=== PATIENT | male | born 1965 | race Caucasian/White ===

== ENCOUNTER 2019-10-08 16:14 | Emergency (ER) | payer MEDICAID, SELFPAY | END 2019-10-08 21:04 | disposition admitted as inpatient to this hospital (09) | LOC: ER 11-29 09:37 | PROVIDERS: Emergency Provider Family Medicine | DX: Z76.89 Persons encountering health services in other specified circumstances (principal) ==

== ENCOUNTER 2019-10-08 16:14 | Observation (INO) | payer MEDICAID, SELFPAY ==
[2019-10-08] VITALS (7 sets, daily range): BP systolic 112–152; BP diastolic 80–97; PULSE 72–112; RESP 18–27; TEMP 36.9–37.2; O2SAT 93–97; BMI 47.2
--- NOTE | 2019-10-08 16:30 | XR_ITS ---
WS: [id number] Portable AP upright chest, 10/08/2019 Clinical Data: cp Comparison: Portable chest, 05/02/2017. FINDINGS: No nodules, masses or effusions are seen. The heart is normal. No pneumonia or pneumothorax is noted. The aortic arch and descending aorta are minimally tortuous. XR/XR chest 1V portable [id number] IMPRESSION: Atherosclerosis.
--- NOTE | 2019-10-08 16:42 | PC.NURSE ---
EKG performed in triage. Patient seated in waiting room at this time. Will continue to monitor.
[2019-10-08 17:33] LABS: Alanine Aminotransferase 19 U/L (0-41); Albumin Level 4.2 g/dL (3.5-5.2); Alkaline Phosphatase 126 IU/L (40-130); Aspartate Amino Transferase 17 U/L (0-40); Basophils # 0.1 10^3/uL (0.0-0.1); Basophils % 0.5 %; Blood Urea Nitrogen 11 mg/dL (6-20); Calcium 9.6 mg/dL (8.5-10.5); Carbon Dioxide 29 mmol/L (22-29); Chloride 98 mmol/L (98-107); Eosinophils # 0.2 10^3/uL (0.0-0.8); Eosinophils % 1.6 %; Globulin 3.3 g/dL (1.3-4.6); Glomerular Filtration Rate 77.6 mL/min (90-130); Glucose 102 mg/dL (74-109); Hematocrit 45.8 % (42.0-52.0); Hemoglobin 14.6 g/dL (11.7-16.6); Lymphocytes # 3.3 10^3/uL (0.8-4.8); Lymphocytes % 32.9 %; Mean Corpuscular HGB Conc 31.9 g/dL (30.0-36.0); Mean Corpuscular Volume 94.2 fL (80-94); Mean Platelet Volume 10.4 fL (7.4-10.4); Monocytes # 0.5 10^3/uL (0.2-0.9); Monocytes % 4.9 %; NT Pro B Type Natriuretic Pept 877 pg/mL (0-125); Neutrophils # 5.9 10^3/uL (1.8-7.7); Neutrophils % 59.7 %; Nucleated Red Blood Cells % 0 %; Platelet Count 293 10^3/cmm (130-400); Red Blood Count 4.86 10^6/uL (4.1-5.3); Red Cell Distribution Width 12.7 % (12.1-15.1); Sodium 137 mmol/L (136-145); Total Bilirubin 0.5 mg/dL (0.15-1.2); Total Protein 7.5 g/dL (6.6-8.7); Troponin(5th) Baseline 138 ng/mL (0-15); White Blood Count 9.9 10^3/uL (4.0-10.0)
--- NOTE | 2019-10-08 18:03 | ED_ITS ---
Entered by Kaveh Shah, acting as scribe for Polo Colón DO Oct 08, 2019 16:14 HPI - Chest Pain General: Chief Complaint: Chest Pain Stated Complaint: SOB, CP Time Seen by Provider: 10/08/19 18:03 History of Present Illness: HPI narrative: 54 yo male presents with chest pain and shortness of breath. Pt states that his chest pain and shortness of breath started today. Pt states that he had a stress test done 15 years ago. Pt states that he can't walk very far without becoming short of breath. Pt states that he sleeps with a CPAP machine. Pt states that he has a heart murmur. MD complaint: chest pain Associated symptoms: Reports dyspnea; Deny abdominal pain, fever(s), nausea, palpitations, syncope or vomiting Review of Systems Const: Denies: fever, chills, body aches, fatigue, malaise or night sweats Eyes: Denies: change in vision or blurry vision ENMT: Denies: throat pain, oral sores/lesions, dental pain, nasal discharge or nasal congestion Card: Reports: chest pain and shortness of breath on exertion; Denies: palpitations, irregular heart rhythm, edema, syncope, shortness of breath when lying down or leg pain with exertion Resp: Reports: shortness of breath, non-productive cough and wheezing; Denies: productive cough GI: Denies: abdominal pain, nausea, vomiting, vomiting blood, coffee grounds in vomit, difficulty swallowing, heartburn/indigestion, diarrhea, constipation, cramping, blood in stool or black tarry stool : Denies: flank pain, difficulty urinating, painful urination, urinary frequency, urinary urgency, urinary incontinence or blood in urine Musc: Denies: neck pain, back pain, extremity pain, extremity swelling, joint pain or joint swelling Skin/Breast: Denies: rash, itching or redness Neuro: Denies: headache, numbness in extremities, weakness in extremities, changes in sensation, lack of coordination, difficulty walking, frequent falls, dizziness, vertigo or confusion Psych: Denies: anxiety, depression, loss of interest, visual hallucinations, auditory hallucinations, suicidal ideation or homicidal ideation Endo: Denies: excessive urination, excessive thirst, tired all the time or cold intolerance Derek/Lymph: Denies: easy bruising, easy bleeding, petechiae, enlarged lymph nodes or tender lymph nodes PFSH ED PFSH: Statuses (acute, chronic, etc) shown below reflect problem list status as previously entered and may not be historically accurate Medical History Back pain (Acute) GI bleeding (Acute) Gout (Acute) Heart murmur (Acute) Hyperlipidemia (Acute) Hypertension (Acute) Peptic ulcer disease (Acute) Pneumonia (Acute) Family History Daughter No problems noted. Brother CAD (coronary artery disease) Sister CAD (coronary artery disease) Social History Smoking and tobacco status: former smoker Alcohol intake: never Physical Exam Const: COMMON NORMALS: average body habitus, oriented x3 and alert GENERAL APPEARANCE: cooperative, comfortable, well kempt and well developed NUTRITIONAL APPEARANCE: obese ORIENTATION/CONSCIOUSNESS: Yes awake, Yes oriented to person and Yes oriented to place HENMT: COMMON NORMALS: normocephalic, head/scalp atraumatic, EAC's normal, TM's normal bilaterally, external nose normal, moist oral mucous membranes and oropharynx normal HEAD & SCALP: normocephalic and atraumatic NOSE: external nose normal EXTERNAL AUDITORY CANAL: EAC's normal TYMPANIC MEMBRANE: TM's normal bilaterally MOUTH: oral and palatal mucosa normal, lip normal and tongue normal THROAT: posterior oropharynx normal and tonsils normal Eye: COMMON NORMALS: PERRL, EOMs intact bilaterally, conjunctivae normal and no scleral icterus CONJUNCTIVA: Yes conjunctivae normal PUPIL: Yes PERRL Neck/C-Spine: COMMON NORMALS: full ROM, no lymphadenopathy, supple, no me ningeal signs and thyroid normal THYROID: thyroid normal and asymmetrical Lymph: LYMPHATIC: no lymphadenopathy noted Resp: COMMON NORMALS: normal respiratory effort, no retractions, no use of accessory muscles and clear to auscultation bilaterally AUSCULTATION: clear to auscultation bilaterally and wheezes expiratory wheezes Cardio: COMMON NORMALS: regular rate and regular rhythm RATE: regular rate RHYTHM: regular rhythm HEART SOUNDS: no murmurs GI: COMMON NORMALS: normal to inspection, nondistended, normoactive bowel sounds, soft to palpation and no hepatosplenomegaly PALPATION: Yes soft and Yes no hepatosplenomegaly : COMMON NORMALS: Yes no CVA tenderness BLADDER/KIDNEY EXAM: Yes no CVA tenderness Back/Pelvis: COMMON NORMALS: no CVA tenderness LUMBAR SPINE/LOWER BACK: Yes normal to inspection Extremity: COMMON NORMALS: no clubbing, cyanosis or edema, no calf tenderness and no pedal edema Neuro: COMMON NORMALS: oriented x3 SENSORIUM/ORIENTATION: Yes alert, Yes oriented to person and Yes oriented to place MENINGEAL SIGNS: Yes no meningeal signs Psych: APPEARANCE: Yes well kempt Skin: COMMON NORMALS: no rashes or lesions noted and skin turgor normal GENERAL SKIN EXAM: no rashes or lesions noted and turgor normal Course ED course: Patient is a heart score of 6 with a baseline troponin greater than 100. He has no significant EKG changes. We will go ahead and put him in as an end STEMI for further evaluation discussed with Dr. Esteevs. Vital Signs: Vital signs: Vital Signs Temperature 99.6 F 10/09/19 17:50 Pulse Rate 88 10/09/19 17:50 Respiratory Rate 18 10/09/19 17:50 Blood Pressure 102/66 10/09/19 17:50 Pulse Oximetry 91 10/09/19 17:50 MDM - Chest Pain Lab Data: Labs: Lab Results 10/08/19 10/08/19 10/08/19 Range/Units 17:00 17:00 17:00 WBC 9.9 (4.0-10.0) 10^3/ uL RBC 4.86 (4.1-5.3) 10^6/u L Hgb 14.6 (11.7-16.6) g/dL Hct 45.8 (42.0-52.0) % MCV 94.2 H (80-94) fL MCH 30.0 (28.0-34.0) pg MCHC 31.9 (30.0-36.0) g/dL RDW 12.7 (12.1-15.1) % Plt Count 293 (130-400) 10^3/c mm MPV 10.4 (7.4-10.4) fL Neut % (Auto) 59.7 % Lymph % (Auto) 32.9 % Merrick % (Auto) 4.9 % Eos % (Auto) 1.6 % Baso % (Auto) 0.5 % Neut # (Auto) 5.9 (1.8-7.7) 10^3/u L Lymph # (Auto) 3.3 (0.8-4.8) 10^3/u L Merrick # (Auto) 0.5 (0.2-0.9) 10^3/u L Eos # (Auto) 0.2 (0.0-0.8) 10^3/u L Baso # (Auto) 0.1 (0.0-0.1) 10^3/u L Nucleated RBC % (a uto) 0 % Nucleated RBCs # 0.0 /100WBC Sodium 137 (136-145) mmol/L Potassium 4.0 (3.5-5.1) mmol/L Chloride 98 (98-107) mmol/L Carbon Dioxide 29 (22-29) mmol/L Anion Gap 14.0 (5-19) BUN 11 (6-20) mg/dL Creatinine 1.0 (0.7-1.2) mg/dL GFR Calculation 77.6 L (90-130) mL/min Glucose 102 (74-109) mg/dL Calcium 9.6 (8.5-10.5) mg/dL Total Bilirubin 0.5 (0.15-1.2) mg/dL AST 17 (0-40) U/L ALT 19 (0-41) U/L Alkaline Phosphata se 126 (40-130) IU/L Troponin T Baselin e 138 H* (0-15) ng/mL NT-Pro-B Natriuret Pep 877 H (0-125) pg/mL Total Protein 7.5 (6.6-8.7) g/dL Albumin 4.2 (3.5-5.2) g/dL Globulin 3.3 (1.3-4.6) g/dL Discharge Plan Discharge Patient Disposition: Admitted As Inpatient Admit Provider: Alan Esteves Clinical Impression: Atypical chest pain, Hypertension, GERD (gastroesophageal reflux disease) Condition: Stable Discharge Orders: Discharge Order (Routine); Ordered 10/09/19 Ordered By: Alan Esteves Discharge Diet: Advance as tolerated Discharge Activity: Resume usual activity Interventions: ED Discharge Assessment Last Done: 10/08/19 21:03 Discharge Date/Time: 10/08/19 21:04 Coding Level of Care Code ED Starch Cooker for Chg Fwd Exam Problem Focused The documentation recorded by the Pablo sifuentes Kialy, accurately reflects the service I personally performed and the decisions made by Eldon rowley Curtis L, DO Oct 08, 2019 16:14
--- NOTE | 2019-10-08 18:30 | ECG_ITS ---
Measurements Intervals [place] Rate: 102 P: 33 MD: 147 QRS: -8 QRSD: 94 T: 121 QT: 338 QTc: 441 SINUS TACHYCARDIA LEFT VENTRICULAR HYPERTROPHY AND ST-T CHANGE [VOLTAGE CRITERIA PLUS ST/T ABNORMALITY] POSSIBLE SEPTAL MYOCARDIAL INFARCTION [30 ms Q WAVE IN V1/V2], OF INDETERMINATE AGE Nonspecific ST changes WARNING: DATA QUALITY MAY AFFECT INTERPRETATION Compared to ECG 05/02/2017 19:34:27 ST (T wave) deviation now present Myocardial infarct finding now present Sinus rhythm no longer present Sinus arrhythmia no longer present T-wave abnormality no longer present Electronically Signed On 10-08-2019 21:10:56 FERMENTATION ENGINEER by Deb Stern M.D. [id number]
[2019-10-08] MEDS: nitroglycerin 1 gm/inch oint Pkt 1 INCH TOPICAL (19:15)
[2019-10-08] MEDS: enoxaparin 100 mg/mL Syringe SUBCUT (19:26)
[2019-10-08] MEDS: enoxaparin 40 mg/0.4 mL Syringe SUBCUT (19:26)
--- NOTE | 2019-10-08 19:56 | PC.NURSE ---
report called to aide on c [address]
--- NOTE | 2019-10-08 21:02 | P.HP_ITS ---
Providers/Chief Complaint Admitting Physician: Alan Esteves MD Chief Complaint: SOB, CP History of Present Illness Alcides Pretty is a 54 year old male with a past medical history of moderately persistent asthma, peptic ulcer disease, GERD, hypertension, hyperlipidemia, chronic back pain who presents to the emergency room due to complaints of shortness of breath and chest pain. Patient states that for the past few months, he has had more shortness of breath, particularly shortness of breath with exertion, stated that yesterday he was out chopping wood, and had an episode of shortness of breath with wheezing, which he attributed to an asthma exacerbation, took albuterol inhaler, his symptoms improved within 5 or so minut es. Patient states that this morning, he woke up with shortness of breath, no wheezing, took an Advair inhalation, symptoms improved in about 5 minutes. Patient states that he went to [facility] this afternoon, stated that when he walked to the back of [facility], he felt more short of breath, more short of breath than usual, and had an episode of substernal chest pain, sharp, stabbing- like, nonradiating, no diaphoresis, no lightheadedness, no dizziness, no nausea, no vomiting, lasting 5 minutes, he stated he eased up, but had some degree of persistent chest pain that lasted roughly 10 minutes when he walked back to his car, sat down, and pain went away with rest. Patient then drove home with his , stated that when he got out of the car with her groceries, he felt short of breath with a few feet, this is extremely unusual for him, no associated wheezing, no cough thus he presented to the emergency room for further evaluation. Patient states that 15 years ago he had episodes of chest pain, had a stress test which was unremarkable, had an EGD which showed gastric ulcers, was put on Protonix 40 twice daily, recently his physician has cut him down to 40 once daily, states that the 40 once daily Protonix helps his acid reflux symptoms, but he has persistent symptoms depending on what he eats. He is not sure if this episode of chest pain was related to his acid reflux. Nor is he sure is if it was related to an asthma exacerbation. But does state that he has intermittent chest pain, occurs every 1 to 2 months, has not sought medical intervention as he thought it was related to his acid reflux. He does have a family history of CAD in his brother and sister. No history of heart failure. No history of CABG. No history of PCI. His last severe asthma exacerbation was many years ago. Patient states that he uses albuterol on a daily basis for the past month, uses Advair twice daily, no recent fevers, cough, infections. Patient does state that he is feeling more anxious for the past few days, as his landlord is evicting them from their rental. Denies a history of diabetes, but does state that his his left eye has been blurry intermittently for the past few days. Review of Systems Const: Denies: fever or chills Eyes: Denies: change in vision or blurry vision ENMT: Denies: nasal congestion Card: Reports: chest pain; Denies: palpitations, irregular heart rhythm, lightheadedness, syncope or pre- syncope Resp: Reports: shortness of breath; Denies: productive cough, non-productive cough or wheezing GI: Denies: abdominal pain, nausea, vomiting, vomiting blood, diarrhea, constipation, blood in stool or black tarry stool : Denies: flank pain, difficulty urinating, painful urination or urinary frequency Musc: Denies: neck pain or back pain Skin/Breast: Denies: rash Neuro: Denies: headache, dizziness or vertigo Psych: Reports: anxiety; Denies: depression Endo: Denies: excessive urination or excessive thirst Medications/Allergies Allergies Allergy/AdvReac Type Severity Reaction Status Date / Time aspirin Allergy Unknown Verified 10/08/19 16:43 gabapentin Allergy ALGY-Hives Verified 10/08/19 16:43 PFSH Acute PFSH: Statuses (acute, chronic, etc) shown below reflect problem list status as previously entered and may not be historically accurate Medical History (Updated 10/08/19 @ 21:09 by Antonio Lay MD) Back pain (Acute) GI bleeding (Acute) Gout (Acute) Heart murmur (Acute) Hyperlipidemia (Acute) Hypertension (Acute) Peptic ulcer disease (Acute) Pneumonia (Acute) Family History (Updated 10/08/19 @ 21:11 by Antonio Lay MD) Daughter No problems noted. Brother CAD (coronary artery disease) Sister CAD (coronary artery disease) Social History (Updated 10/08/19 @ 21:11 by Antonio Lay MD) Smoking and tobacco status: former smoker Alcohol intake: never Substance/Drug Use: never Vitals/I&O/Wt Last Vital Signs Temp 99 F 10/08/19 16:37 Pulse 97 10/08/19 19:28 Resp 21 H 10/08/19 19:28 BP 112/92 10/08/19 19:28 Pulse Ox 96 10/08/19 19:28 Weight last 48 hrs Weight 145.15 kg Physical Exam Const: COMMON NORMALS: no apparent distress and oriented x3 GENERAL APPEARANCE: cooperative and comfortable HENMT: COMMON NORMALS: normocephalic HEAD & SCALP: normocephalic Eye: COMMON NORMALS: PERRL, EOMs intact bilaterally and no papilledema GENERAL EYE: normal appearance of both eyes PUPIL: Yes PERRL DIRECT OPHTHALMOSCOPY: Yes no papilledema Neck/C-Spine: COMMON NORMALS: full ROM, no lymphadenopathy, no JVD and thyroid normal THYROID: thyroid normal Lymph: LYMPHATIC: no lymphadenopathy noted Resp: COMMON NORMALS: normal respiratory effort, no retractions, no use of accessory muscles and clear to auscultation bilaterally AUSCULTATION: clear to auscultation bilaterally Cardio: COMMON NORMALS: no JVD, regular rate, regular rhythm, S1 normal heart sound, S2 normal heart sound, no gallops, no clicks and no murmurs RATE: regular rate RHYTHM: regular rhythm HEART SOUNDS: S1 normal, S2 normal and murmur systolic GI: COMMON NORMALS: normal to inspection, nondistended, normoactive bowel sounds, soft to palpation, non-tender and no hepatosplenomegaly PALPATION: Yes soft and Yes no hepatosplenomegaly Extremity: COMMON NORMALS: normal to inspection, full ROM and no pedal edema Neuro: COMMON NORMALS: oriented x3, CN's II-XII intact bilaterally, moves all extremities and no focal motor deficits Psych: COMMON NORMALS: mental status grossly normal, thought process normal and cooperative THOUGHT PROCESS: normal thought process Data : 10/08/19 17:00 10/08/19 17:00 A&P Assessment and plan (1) Chest pain: -History is not very convincing in terms of cardiac related chest pain -Seems more like related to acid reflux and or asthma -Patient's initial EKG did show new T wave inversions in 1, aVL, chronic LVH -Patient's initial troponin was 138, 2-hour 137, delta 0.5 -Patient had another episode of 5 minutes of chest pain in the ER, resolved with nitro paste -Has history of hypertension, hyperlipidemia, family history of CAD, morbid obesity Plan: -ACS protocol, low-dose aspirin 81 mg GI coated, Protonix, nitro, Coreg -Serial EKGs, troponins -Oxygen therapy -Continue telemetry monitoring -Cardiac diet -N.p.o. midnight, stress test tomorrow morning, patient has back pain, cannot really run on treadmill, order Lexiscan MIBI -Has a systolic murmur, will order cardiac echocardiogram Status: Acute Code(s): R07.9 - Chest pain, unspecified (2) Hypertension: Status: Acute Code(s): I10 - Essential (primary) hypertension (3) Heart murmur: Status: Acute Code(s): R01.1 - Cardiac murmur, unspecified (4) Peptic ulcer disease: -Increase Protonix to 40 twice daily, GI cocktail Status: Acute Code(s): K27.9 - Peptic ulcer, site unspecified, unspecified as acute or chronic, without hemorrhage or perforation (5) Hyperlipidemia: Status: Acute Code(s): E78.5 - Hyperlipidemia, unspecified (6) Asthma exacerbation: -Patient has moderate persistent asthma, poorly controlled -Has had a few exacerbations the last few days -Currently in ER not actively wheezing, not actively short of breath, saturating high 90s on room air -We will start prednisone burst -Albuterol nebulizers -Advair Status: Acute Code(s): J45.901 - Unspecified asthma with (acute) exacerbation (7) GERD (gastroesophageal reflux disease): Status: Acute Code(s): K21.9 - Gastro-esophageal reflux disease without esophagitis Attestations Medical Necessity Statement*: Patient requires hospitalization, outpatient with observation, for chest pain and asthma exacerbation Coding Level of Care Code Acute Water Treatment Plant Supervisor for Chg Fwd Diagnoses Chest pain R07.9 Hypertension I10 Heart murmur R01.1 Peptic ulcer disease K27.9 Hyperlipidemia E78.5 Asthma exacerbation J45.901 GERD (gastroesophageal reflux disease) K21.9
--- NOTE | 2019-10-08 21:37 | USCV_ITS ---
Alcides Pretty Age: 54 Gender: M : 1965 Exam Date: 10/09/2019 06:58 Ordering Phys: Antonio Lay MD Technologist: Leighton Xavier [place] [facility] [place]: CHEST PAIN MURMUR BP: 134 / 74 HR: 76 Rhythm: Sinus Technical Quality: Suboptimal MEASUREMENTS (Male / Female) Normal Values 2D ECHO LV Diastolic Diameter PLAX 5.5 cm 4.2 - 5.9 / 3.9 - 5.3 cm LV Systolic Diameter PLAX 4.0 cm IVS Diastolic Thickness 1.1 cm 0.6 - 1.0 / 0.6 - 0.9 cm IVS Systolic Thickness 1.4 cm LVPW Diastolic Thickness 1.1 cm 0.6 - 1.0 / 0.6 - 0.9 cm LVPW Systolic Thickness 1.5 cm LVOT Diameter 2.1 cm LV Ejection Fraction 2D Teich 52.3 % LV Ejection Fraction MOD 2C 44.9 % LV Ejection Fraction 2C AL 46.6 % LA Diameter 4.3 cm LA Width 4.8 cm LA Height 5.8 cm RA Width 5.0 cm RA Height 5.5 cm M-MODE LV Diastolic Diameter MM 5.8 cm 4.2 - 5.9 / 3.9 - 5.3 cm LV Systolic Diameter MM 4.3 cm LV Ejection Fraction MM Teich 50.3 % IVS Diastolic Thickness MM 1.1 cm 0.6 - 1.0 / 0.6 - 0.9 cm IVS Systolic Thickness MM 1.7 cm LVPW Diastolic Thickness MM 1.3 cm 0.6 - 1.0 / 0.6 - 0.9 cm LVPW Systolic Thickness MM 1.9 cm RV Diastolic Diameter MM 2.1 cm Aortic Annulus Diameter 3.7 cm LA Ao Ratio MM 1.1 DOPPLER AV Peak Velocity 398.0 cm/s LVOT Peak Velocity 59.0 cm/s AV Area Cont Eq vti 0.5 cm squared AV Area Cont Eq pk 0.5 cm squared MV E' Velocity 5.0 cm/s TR Peak Velocity 130.0 cm/s TR Peak Gradient 6.8 mmHg TV Peak E Velocity 109.0 cm/s Right Atrial Pressure 3.0 mmHg Pulmonary Artery Systolic Pressu 9.8 mmHg PV Peak Velocity 87.0 cm/s FINDINGS Left Ventricle The ventricles not well seen. Appears to be normal in size. There appears to be severe hypokinesis to akinesis of the anterior wall and apex though this is poorly seen. This suggests an old myocardial infarction distribution of the left anterior descending coronary artery. A rough estimate of the ejection fraction would be 35 to 40%. Grade 1 diastolic dysfunction. Right Ventricle Normal right ventricular size and systolic function. Normal right ventricular systolic pressure. Right Atrium Mildly increased right atrial size. Left Atrium Mildly increased left atrial size. Mitral Valve Mitral valve not well visualized. No mitral valve stenosis. No mitral valve regurgitation. Aortic Valve Aortic valve not well visualized. Severe aortic valve calcification. Moderate aortic valve stenosis, mean gradient 32.1 mmHg, KVNG 0.54 cm squared. The calculation of the gradient and aortic valve area are somewhat disproportionate. There is at least moderate aortic stenosis. No obvious aortic insufficiency. Tricuspid Valve Structurally normal tricuspid valve. Trace tricuspid valve regurgitation. Pulmonic Valve Pulmonic valve not well visualized. Pericardium Normal pericardium without effusion. Aorta Normal ascending aorta dimension. CONCLUSIONS The ventricles not well seen. Appears to be normal in size. There appears to be severe hypokinesis to akinesis of the anterior wall and apex though this is poorly seen. This suggests an old myocardial infarction distribution of the left anterior descending coronary artery. A rough estimate of the ejection fraction would be 35 to 40%. Grade 1 diastolic dysfunction. Mildly increased right atrial size. Mildly increased left atrial size. Aortic valve not well visualized. Severe aortic valve calcification. Moderate aortic valve stenosis, mean gradient 32.1 mmHg, KVNG 0.54 cm squared. The calculation of the gradient and aortic valve area are somewhat disproportionate. There is at least moderate aortic stenosis. No obvious aortic insufficiency. There are no prior echocardiogram studies to compare. Dr. Michael Riggs MD (Electronically Signed) Final Date: 09 October 2019 10:42 S
[2019-10-08] MEDS: aspirin 81 mg EC Tablet PO (22:02)
[2019-10-08] MEDS: pantoprazole DR 40 mg Tablet PO (22:03)
[2019-10-08] MEDS: atorvastatin 40 mg Tablet PO (22:03)
[2019-10-08] MEDS: HYDROcodone-acetaminophen 10-325 mg Tablet 1 TAB PO (22:04)
--- NOTE | 2019-10-08 22:30 | ECG_ITS ---
Measurements Intervals [place] Rate: 106 P: 45 AR: 148 QRS: 1 QRSD: 93 T: 134 QT: 328 QTc: 437 SINUS TACHYCARDIA LEFT VENTRICULAR HYPERTROPHY AND ST-T CHANGE [VOLTAGE CRITERIA PLUS ST/T ABNORMALITY] Compared to ECG 05/02/2017 19:34:27 ST (T wave) deviation now present Sinus rhythm no longer present Sinus arrhythmia no longer present T-wave abnormality no longer present Electronically Signed On 10-08-2019 21:09:28 PRICING CLERK by Deb Stern M.D. [id number]
[2019-10-08] MEDS: acetaminophen 325 mg Tablet 650 MG PO (23:16)
[2019-10-08 23:28] LABS: Thyroid Stimulating Hormone 1.46 uIU/mL (0.27-4.20)
[2019-10-08 23:51] LABS: Troponin 5 6HR 132.6 ng/L (0-15); Troponin 5 6HR Delta -5.4 ng/L (0-12)
[2019-10-09] VITALS (13 sets, daily range): BP systolic 99–119; BP diastolic 66–85; PULSE 68–100; RESP 18–24; TEMP 36.7–37.6; O2SAT 91–96
[2019-10-09 05:30] LABS: Basophils % 0.4 %; Eosinophils # 0.1 10^3/uL (0.0-0.8); Eosinophils % 1.4 %; Hematocrit 38.8 % (42.0-52.0); Hemoglobin 12.7 g/dL (11.7-16.6); Lymphocytes # 4.1 10^3/uL (0.8-4.8); Lymphocytes % 43.1 %; Mean Corpuscular HGB Conc 32.7 g/dL (30.0-36.0); Mean Corpuscular Hemoglobin 30.2 pg (28.0-34.0); Mean Corpuscular Volume 92.4 fL (80-94); Mean Platelet Volume 10.1 fL (7.4-10.4); Monocytes # 0.5 10^3/uL (0.2-0.9); Monocytes % 4.9 %; Neutrophils # 4.7 10^3/uL (1.8-7.7); Neutrophils % 49.9 %; Nucleated Red Blood Cells % 0 %; Platelet Count 242 10^3/cmm (130-400); Red Cell Distribution Width 12.6 % (12.1-15.1); White Blood Count 9.4 10^3/uL (4.0-10.0)
[2019-10-09 05:48] LABS: Alanine Aminotransferase 15 U/L (0-41); Albumin Level 3.3 g/dL (3.5-5.2); Alkaline Phosphatase 101 IU/L (40-130); Anion Gap 17.5 (5-19); Aspartate Amino Transferase 14 U/L (0-40); Blood Urea Nitrogen 10 mg/dL (6-20); Calcium 9.2 mg/dL (8.5-10.5); Carbon Dioxide 24 mmol/L (22-29); Chloride 99 mmol/L (98-107); Globulin 3.3 g/dL (1.3-4.6); Glomerular Filtration Rate 87.6 mL/min (90-130); Glucose 116 mg/dL (74-109); Potassium 3.5 mmol/L (3.5-5.1); Sodium 137 mmol/L (136-145); Total Bilirubin 0.5 mg/dL (0.15-1.2); Total Protein 6.6 g/dL (6.6-8.7)
--- NOTE | 2019-10-09 06:00 | ECG_ITS ---
Intraprocedure shortess of breath; Lung unchanged pre/post procedure; Symptoms resoled by discharge LEXISCAN STRESS TEST ORDERING PHYSICIAN: Hospitalist CLINICAL INFORMATION: Chest pain INTERPRETATION: 1. The patient was brought to the laboratory where Lexiscan was infused over 20 seconds. The resting blood pressure was 138/74. Maximum blood pressure was 138/74. The resting heart rate was 80 beats per minute. The maximum heart rate is 107 beats per minute. 2. The baseline electrocardiogram reveals sinus rhythm with left ventricular hypertrophy by voltage, unusual R wave progression suggesting lead misplacement and nonspecific ST and T wave changes throughout 3. With Lexiscan infusion, there were no ST segment changes to suggest ischemia. 4. The patient experienced no symptoms or arrhythmias during the examination. CONCLUSION: 1. Unremarkable Lexiscan infusion. 2. Nuclear imaging to follow. Electronically Signed On 10-09-2019 11:07:02 CONFERENCE DIRECTOR by Michael Riggs M.D. [id number]
[2019-10-09 06:04] LABS: Estmated Average Glucose 126
[2019-10-09 06:06] LABS: Magnesium 2.1 mg/dL (1.7-2.3); Phosphorus 4.2 mg/dL (2.5-4.5)
[2019-10-09] MEDS: enoxaparin 100 mg/mL Syringe 150 MG SUBCUT (06:19)
--- NOTE | 2019-10-09 07:23 | PC.NURSE ---
Pt off of floor at this time for scheduled stress test
[2019-10-09] MEDS: regadenoson 0.4 Mg/5 ml Syringe IVP (07:49)
[2019-10-09] MEDS: pantoprazole DR 40 mg Tablet PO (09:18)
[2019-10-09] MEDS: predniSONE 20 mg Tablet 40 MG PO (09:18)
[2019-10-09] MEDS: aspirin 81 mg EC Tablet PO (09:19)
[2019-10-09] MEDS: carvedilol 6.25 mg Tablet PO (09:19)
--- NOTE | 2019-10-09 14:10 | PC.CHAP ---
Pastoral Care Encounter/Spiritual Assessment Type of Contact [] Declined treating and pumping supervisor visit [] Patient/Family/Request visit [] Outpatient visit [] Follow-up visit [] Physician referral [] Code/Alert [x] Routine visit [] Staff referral [] Actively dying [] Patient sleeping [] Family support [] [] Out of room [] Palliative care [] [] Receiving care in room [] Pre-surgical visit [] Trauma [] Long length of stay [] ICU visit [] Other: Relational/Emotional Strength [x] Patient feels connected with others/family/visitors/staff [] Distress [] Loneliness/isolation [] Abandonment Spirituality of Patient [x] Person of Joyce [] Attends Anabaptist of their Joyce [x] Believes in Prayer [] Reads Bible or Alevism materials [] There are Spiritual issues to be addressed Vertical Contour Band Saw Operator Interventions [x] Prayer [x] Active listening [x] Non-anxious presence [x] Spiritual/emotional support [] Crisis/trauma care [] Spiritual counseling [] Bereavement support [] Provided bereavement packet [] Provided Bible/devotional materials [] Provided toy/stuffed animal, coloring book to patient or family member [] Provided Communion [] Anointing/[place] [] Salvation [] Completed spiritual assessment [] Other: Impact on Illness or Injury [] Angry [] Fearful [] Anxious [] Often cries [] Exhaustion [] Unable to work [] Unable to attend hindu [] Unable to walk/stand [] Unable to read [] Unable to drive [] Unable to eat/drink [] Unable to sleep [] Unable to be with family [] Patient intubated [] Other: Summary The treating and pumping supervisor visited with the patient. The patient said he was feeling better. The treating and pumping supervisor prayed for him. Time spent with patient 10 min.
--- NOTE | 2019-10-09 15:42 | P.DS_ITS ---
Discharge Providers Date of Admission: 10/08/19 18:26 Date of Discharge: Date of Discharge: October 09, 2019 Attending Provider at Admission: Alan Esteves MD Attending Provider at Discharge: Alan Esteves MD Diagnoses at Discharge Discharge Diagnosis (1) Chest pain: Status: Acute (2) Hypertension: Status: Acute (3) Heart murmur: Status: Acute (4) Peptic ulcer disease: Status: Acute (5) Hyperlipidemia: Status: Acute (6) Asthma exacerbation: Status: Acute (7) GERD (gastroesophageal reflux disease): Status: Acute Reason for Visit Reason for Visit: Reason For Visit: SOB, CP Hospital Course Discharge Summary: Patient presented with atypical chest pain which was more suggestive of GI in etiology. Patient was placed in observation and underwent sestamibi Lexiscan test showing no findings of acute ischemia. Case discussed with Dr. Riggs and based on findings further coronary artery evaluation is not recommended. I will request outpatient follow-up with Dr. Lynch. Patient was told to avoid any NSAIDs. Meloxicam will be discontinued and omeprazole will be increased to twice daily. Should patient be symptomatic further evaluation with EGD in 2 months should be considered. Physical Exam Const: COMMON NORMALS: no apparent distress and oriented x3 Resp: COMMON NORMALS: normal respiratory effort and clear to auscultation bilaterally AUSCULTATION: clear to auscultation bilaterally Cardio: COMMON NORMALS: regular rate, regular rhythm and S2 normal heart sound RATE: regular rate RHYTHM: regular rhythm HEART SOUNDS: S2 normal OTHER: No lower extremity edema GI: COMMON NORMALS: normal to inspection, nondistended, normoactive bowel sounds, soft to palpation and non-tender PALPATION: Yes soft Neuro: COMMON NORMALS: oriented x3 and no focal motor deficits Discharge Data Data Completed and Pending: Completed Studies During Hospitalization Category Date Time Status Sestamibi Stress Test Request Routi ne Exams 10/09/19 06:00 Completed XR chest 1V anny ble [id number] Stat Exams 10/08/19 16:30 Completed NM krista perf SPECT r/s* [id number] Routin e Nuc Med 10/09/19 21:37 Completed CV echo complete* [id number] Routine Ultrasound 10/08/19 21:37 Completed Pending at discharge Category Date Time Status Sestamibi Stress Test Request Routi ne Exams 10/08/19 21:37 Stop Req Magnesium AM LABS Lab 10/10/19 04:00 Ordered Magnesium AM LABS Lab 10/11/19 04:00 Ordered Phosphorus AM LAB S Lab 10/10/19 04:00 Ordered Phosphorus AM LAB S Lab 10/11/19 04:00 Ordered Labs from last 24 hours 10/09/19 10/09/19 10/09/19 05:12 05:12 05:12 WBC RBC Hgb Hct MCV MCH MCHC RDW Plt Count MPV Neut % (Auto) Lymph % (Auto) [place] % (Auto) Eos % (Auto) Baso % (Auto) Neut # (Auto) Lymph # (Auto) [place] # (Auto) Eos # (Auto) Baso # (Auto) Nucleated RBC % (a uto) Nucleated RBCs # Sodium 137 Potassium 3.5 Chloride 99 Carbon Dioxide 24 Anion Gap 17.5 BUN 10 Creatinine 0.9 GFR Calculation 87.6 L Glucose 116 H Estimat Average Gl ucose 126 Hemoglobin A1c 6.0 Calcium 9.2 Phosphorus 4.2 Magnesium 2.1 Total Bilirubin 0.5 AST 14 ALT 15 Alkaline Phosphata se 101 Troponin I 6 Hour Troponin I Hi Sens Del Troponin T Baselin e Troponin T 120 Min [place] Troponin T NT-Pro-B Natriuret Pep Total Protein 6.6 Albumin 3.3 L Globulin 3.3 TSH 10/09/19 10/08/19 10/08/19 05:12 22:54 22:54 WBC 9.4 RBC 4.20 Hgb 12.7 Hct 38.8 L MCV 92.4 MCH 30.2 MCHC 32.7 RDW 12.6 Plt Count 242 MPV 10.1 Neut % (Auto) 49.9 Lymph % (Auto) 43.1 [place] % (Auto) 4.9 Eos % (Auto) 1.4 Baso % (Auto) 0.4 Neut # (Auto) 4.7 Lymph # (Auto) 4.1 [place] # (Auto) 0.5 Eos # (Auto) 0.1 Baso # (Auto) 0.0 Nucleated RBC % (a uto) 0 Nucleated RBCs # 0.0 Sodium Potassium Chloride Carbon Dioxide Anion Gap BUN Creatinine GFR Calculation Glucose Estimat Average Gl ucose Hemoglobin A1c Calcium Phosphorus Magnesium Total Bilirubin AST ALT Alkaline Phosphata se Troponin I 6 Hour 132.6 H Troponin I Hi Sens Del -5.4 L Troponin T Baselin e Troponin T 120 Min [place] Troponin T NT-Pro-B Natriuret Pep Total Protein Albumin Globulin TSH 1.46 10/08/19 10/08/19 10/08/19 19:12 17:00 17:00 WBC RBC Hgb Hct MCV MCH MCHC RDW Plt Count MPV Neut % (Auto) Lymph % (Auto) [place] % (Auto) Eos % (Auto) Baso % (Auto) Neut # (Auto) Lymph # (Auto) [place] # (Auto) Eos # (Auto) Baso # (Auto) Nucleated RBC % (a uto) Nucleated RBCs # Sodium 137 Potassium 4.0 Chloride 98 Carbon Dioxide 29 Anion Gap 14.0 BUN 11 Creatinine 1.0 GFR Calculation 77.6 L Glucose 102 Estimat Average Gl ucose Hemoglobin A1c Calcium 9.6 Phosphorus Magnesium Total Bilirubin 0.5 AST 17 ALT 19 Alkaline Phosphata se 126 Troponin I 6 Hour Troponin I Hi Sens Del Troponin T Baselin e 138 H* Troponin T 120 Min [place] 137.50 H Delta Troponin T -0.50 L NT-Pro-B Natriuret Pep 877 H Total Protein 7.5 Albumin 4.2 Globulin 3.3 TSH 10/08/19 17:00 WBC 9.9 RBC 4.86 Hgb 14.6 Hct 45.8 MCV 94.2 H MCH 30.0 MCHC 31.9 RDW 12.7 Plt Count 293 MPV 10.4 Neut % (Auto) 59.7 Lymph % (Auto) 32.9 [place] % (Auto) 4.9 Eos % (Auto) 1.6 Baso % (Auto) 0.5 Neut # (Auto) 5.9 Lymph # (Auto) 3.3 [place] # (Auto) 0.5 Eos # (Auto) 0.2 Baso # (Auto) 0.1 Nucleated RBC % (a uto) 0 Nucleated RBCs # 0.0 Sodium Potassium Chloride Carbon Dioxide Anion Gap BUN Creatinine GFR Calculation Glucose Estimat Average Gl ucose Hemoglobin A1c Calcium Phosphorus Magnesium Total Bilirubin AST ALT Alkaline Phosphata se Troponin I 6 Hour Troponin I Hi Sens Del Troponin T Baselin e Troponin T 120 Min [place] Troponin T NT-Pro-B Natriuret Pep Total Protein Albumin Globulin TSH Vitals: Last Vital Signs Temp 99.3 F 10/09/19 11:04 Pulse 84 10/09/19 14:42 Resp 18 10/09/19 14:36 BP 113/77 10/09/19 11:04 Pulse Ox 96 10/09/19 14:36 Discharge Plan Discharge Patient Disposition: Home, Self-Care Condition: Stable Prescriptions: New atorvastatin 40 mg Tablet 40 mg PO BEDTIME Qty: 30 RF: 0 nitroglycerin [Nitrostat] 0.4 mg Tablet, Sublingual 0.4 mg sublingual Q5M PRN (Reason: Chest Pain) Qty: 25 RF: 0 Continued hydrocodone-acetaminophen 10-325 mg Tablet 1 tab PO Q6H PRN (Reason: Pain) RF: 0 citalopram 10 mg Tablet 10 mg PO DAILY RF: 0 Flonase Allergy Relief 50 mcg/actuation [place],Suspension 2 spray INTRANASAL DAILY RF: 0 fluticasone propion-salmeterol 250-50 mcg/dose Blister With Device 1 inh INHALATION BID RF: 0 methocarbamol 500 mg Tablet 500 mg PO BID PRN (Reason: Spasms) RF: 0 carvedilol 6.25 mg Tablet 6.25 mg PO DAILY RF: 0 Changed omeprazole 40 mg Capsule,Delayed Release(Dr/Ec) 40 mg PO BIDWM Qty: 60 RF: 0 Discontinued meloxicam 15 mg Tablet 15 mg PO DAILY RF: 0 Discharge Orders: Discharge Order (Routine); Ordered 10/09/19 Ordered By: Alan Esteves Referrals: Shadi Lynch MD [Physician] - 10/30/19 Discharge Diet: Advance as tolerated Discharge Activity: Resume usual activity Activity Restrictions/Additional Instructions: Please call your doctor or present to emergency department if your condition worsens or you develop diarrhea, lightheadedness, fatigue or see blood in your stool or black stool. Please discontinue any NSAIDs including naproxen that you occasionally take and only take prescribed [place] for pain. Do not take any other NSAIDs including meloxicam ibuprofen or Advil. Please keep blood pressure and heart rate log 3 times daily to present to primary care physician within next visit for medication adjustment. Please follow-up with your primary care physician within next 4 to 7 days. Discharge Attestations Time Spent in Discharge Care*: greater than 30 min Quality Metrics Clinical Quality Measures During this hospital stay, did patient experience: None Coding Level of Care Code Acute Manufacturer for Tereza Fwveronica Diagnoses Chest pain R07.9 Hypertension I10 Heart murmur R01.1 Peptic ulcer disease K27.9 Hyperlipidemia E78.5 Asthma exacerbation J45.901 GERD (gastroesophageal reflux disease) K21.9
--- NOTE | 2019-10-09 17:04 | PC.NURSE ---
Pt IV DC'd at this time. Pt tolerated well. Written and verbal DC instructions given. Voiced understanding.
--- NOTE | 2019-10-09 21:37 | NMCV_ITS ---
NM krista perf SPECT r/s* [id number] Alcides Pretty Age: 54 Gender: M : 1965 Exam Date: 10/09/2019 07:00 Ordering Phys: Antonio Lay MD Technologist: JASSON Ansari Exam Location: [facility] Indications: CP, SOB STRESS TEST Please see separate stress test report in [facility] for full findings IMAGE PROTOCOL Rest/Stress 1 Lexiscan Day Radiopharmaceutical Dose (mCi) Administration Site Administered by Rest: Tc-99m 10.9 IV JASSON Ansari Sestamibi Stress:Tc-99m 33.0 IV JASSON Ansari Sestamibi Rest: 09-Oct-2019 60 Discovery 630 Stress: 09-Oct-2019 45 Discovery 630 0.4mg Lexiscan. Images obtained in supine and prone position. SPECT RESULTS Technical Quality: Good Raw Data Analysis: Soft tissue attenuation Image Corrections: No attenuation or motion correction applied Summed Stress Score: 15 Summed Rest Score: 15 Summed Difference Score: 0 PERFUSION FINDINGS Medium-sized area of fixed perfusion defect noted in mid to distal anterior wall of the left ventricle suggestive of old myocardial infarction versus scarring. Small area of basal to mid inferior wall decreased tracer uptake noted on the rest images which improved over stress images suggestive of artifact. FUNCTIONAL RESULTS (calculated via Gated SPECT) Stress Image LV EF (%): 11 Stress EDV (mL):257 TID: 1.01 Stress ESV (mL):228 FUNCTIONAL FINDINGS: Mid to distal and apical hypokinesis. IMPRESSIONS Medium sized area of old myocardial infarction versus scarring noted in mid to distal anterior and apical wall of the left ventricle without ischemia. Most likely mid LAD area of infarct. EKG segment will be documented separately. Shadi Lynch MD (Electronically Signed) Final Date: 09 October 2019 11:02 S
== END 2019-10-09 17:50 | disposition home or self-care (01) ==
LOC: ER 19:05 → MEDSURG 19:06
PROVIDERS: Emergency Medicine; Family Medicine; Admitting Provider Internal Medicine; Emergency Provider Family Medicine; Visit Provider Internal Medicine
DX: R07.9 Chest pain, unspecified (principal); I10 Essential (primary) hypertension; R01.1 Cardiac murmur, unspecified; K27.9 Peptic ulcer, site unspecified, unspecified as acute or chronic, without hemorrhage or perforation; E78.5 Hyperlipidemia, unspecified; J45.901 Unspecified asthma with (acute) exacerbation; K21.9 Gastro-esophageal reflux disease without esophagitis; Z79.82 Long term (current) use of aspirin; Z82.49 Family history of ischemic heart disease and other diseases of the circulatory system; Z87.891 Personal history of nicotine dependence; Z79.891 Long term (current) use of opiate analgesic
CPT/HCPCS: 12345; 36415; 71045; 78452; 80053; 83036; 83735; 83880; 84100; 84443; 84484; 85025; 93005; 93017; 93306; 94640; 96372; 99283; 99285; A9270; A9500; G0378; J1650; J2785; J7512; J7611

== ENCOUNTER 2022-09-28 20:49 | Emergency (ER) | payer MEDICAID, SELFPAY ==
[2022-09-28 21:01] VITALS: BP 169/102; PULSE 77; RESP 18; TEMP 36.6; O2SAT 97
[2022-09-28] MEDS: cephALEXin 500 mg Capsule 1000 MG PO (22:30)
--- NOTE | 2022-09-28 22:31 | W.ED.EXTPRO ---
Documented by User: FARHAD Leon 09/28/22 22:45 HPI - Extremity Problem General: Chief complaint: Extremity Injury, Upper Stated complaint: fall, arm laceration Time Seen by Provider: 09/28/22 20:51 History of Present Illness: Patient is in today for a laceration of his left forearm. He reports that he was walking out of the house and he slipped and cut his arm on the hinge from the old screen door. He cannot recall when his last tetanus vaccination was given. He denies hitting his head or any loss of consciousness. He denies taking blood thinning medications. Associated symptoms: Deny chest pain or fever(s) Review of Systems Const: Denies: fever(s) or chills Card: Denies: chest pain or palpitations Resp: Denies: dyspnea, productive cough or non-productive cough GI: Denies: abdominal pain, nausea or vomiting Skin/Breast: Reports: other (Laceration left forearm) [facility] ED PFSH: Medical History Back pain GI bleeding Gout Heart murmur Hyperlipidemia Hypertension Peptic ulcer disease Pneumonia Family History Daughter No problems noted. Brother CAD (coronary artery disease) Sister CAD (coronary artery disease) Social History Smoking and tobacco status: former smoker Alcohol intake: never Physical Exam Const: COMMON NORMALS: no acute distress, patient oriented x3 and alert Resp: COMMON NORMALS: normal respiratory effort and No use of accessory muscles Extremity: NARRATIVE EXTREMITY EXAM: Patient with a large laceration of the left forearm. Patient still has full range of motion of the arm and distal hand. Two-point discrimination is intact to the fingers. Ulnar and radial pulses intact to the hand. CSM within normal limits EXTREMITY IMAGE (FRONT): 1. Approximate 25 cm laceration V-shaped gaping involving adipose tissue. No involvement of muscle or tendon structures appreciated. Neuro: COMMON NORMALS: patient oriented x3 SENSORIUM/ORIENTATION: Yes alert Procedures Laceration Left forearm: Site: upper extremity (Left forearm) Side (If applicable): left Size (cm): 25 Description: irregular and other (Gaping) Depth: simple, single layer (Single layer of skin and adipose tissue) Local Anesthetic: lidocaine 2% Amount of anesthesia used (mL): 7 Pre-repair: wound explored, irrigated extensively, deep structures intact and wound margins revised Skin layer closed with: nylon Size (cm): 3-0 Technique: running (Running locking sutures on each side of the V-2 simple interrupted sutures at the V) Course Vital Signs: Vital signs: Vital Signs Temperature 97.9 F 09/28/22 21:01 Pulse Rate 81 09/28/22 22:35 Respiratory Rate 20 H 09/28/22 22:35 Blood Pressure 162/89 09/28/22 22:35 Pulse Oximetry 97 09/28/22 22:35 Oxygen Delivery Me thod 09/28/22 21:01 MDM - Extremity (Nontraumatic) Medical Decision Making Patient is in for laceration of the left forearm. He was given 1 dose of Ancef in route by EMS. Bleeding was controlled on arrival. Discussed with patient options for wound closure. We discussed potential benefits and risk of various types of wound closure. We discussed realistic expectations and likelihood for scarring. We discussed risk of infection. Patient voiced understanding of instruction and gives verbal consent to proceed with suture repair of the wound. Local anesthetic was administered and wound was irrigated extensively with 1000 cc of sterile water. No obvious foreign bodies appreciated. Wound edges were revised. 2 simple interrupted sutures utilized at the V area of the wound and then running locking sutures on either side of the V. Just proximal to the main wound there was a small half-inch superficial linear laceration that was repaired with 1 suture simple interrupted technique. Patient tolerated suture repair well with no immediate complications. Wound was dressed and patient is advised of aftercare. Tetanus vaccination was updated. Patient is started on Keflex antibiotic for prophylaxis. Advised him to follow-up with primary care provider as needed. Return in 10 days for suture removal. Return to the ER sooner as needed for any new or worsening symptoms. Discharge Plan Discharge Patient Disposition: Home Clinical Impression: Laceration Condition: Stable Prescriptions: New cephalexin 500 mg capsule 500 mg PO BID 6 Days Qty: 12 0RF No Action hydrocodone-acetaminophen 10-325 mg Tablet 1 tab PO Q6H PRN (Reason: Pain) citalopram 10 mg Tablet 10 mg PO DAILY Flonase Allergy Relief 50 mcg/actuation [place],Suspension 2 spray INTRANASAL DAILY fluticasone propion-salmeterol 250-50 mcg/dose Blister With Device 1 inh INHALATION BID methocarbamol 500 mg Tablet 500 mg PO BID PRN (Reason: Spasms) carvedilol 6.25 mg Tablet 6.25 mg PO DAILY atorvastatin 40 mg Tablet 40 mg PO BEDTIME Qty: 30 0RF Nitrostat 0.4 mg Tablet, Sublingual 0.4 mg sublingual Q5M PRN (Reason: Chest Pain) Qty: 25 0RF omeprazole 40 mg Capsule,Delayed Release(Dr/Ec) 40 mg PO BIDWM Qty: 60 0RF Discharge Orders: Discharge ED (Routine); Ordered 09/28/22 Ordered By: Zuri Zaman Referrals: Tien Conde [Primary Care Provider] - Discharge Diet: Usual diet Discharge Activity: Limit activity as instructed Patient Instructions: Care For Your Stitches (ED) Activity Restrictions/Additional Instructions: Keep the wound clean and dry. Start Keflex antibiotic tomorrow twice a day for 7 days. You were sent home with 2 tablets of Keflex from ER [facility] as the weather may prevent you from getting to the pharmacy tomorrow. Take 1 in the morning and 1 tomorrow evening and then once you get your prescription and continue twice a day dosing for the remaining 6 days. Monitor closely for signs and symptoms of infection. Follow-up in approximately 10 days for suture removal. Return to the ER as needed for any new or worsening symptoms Coding Level of Care Code ED Cigar Head Piercer for Chg Fwd Exam Expanded Problem Focused Documented by User: Polo Colón DO 09/29/22 06:11 HPI - Extremity Problem General: Chief complaint: Extremity Injury, Upper Stated complaint: fall, arm laceration Time Seen by Provider: 09/28/22 20:51 PFSH ED PFSH: Medical History Back pain GI bleeding Gout Heart murmur Hyperlipidemia Hypertension Peptic ulcer disease Pneumonia Family History Daughter No problems noted. Brother CAD (coronary artery disease) Sister CAD (coronary artery disease) Social History Smoking and tobacco status: former smoker Alcohol intake: never Physical Exam Extremity: EXTREMITY IMAGE (FRONT): 1. Approximate 25 cm laceration V-shaped gaping involving adipose tissue. No involvement of muscle or tendon structures appreciated. Course Vital Signs: Vital signs: Vital Signs Temperature 97.9 F 09/28/22 21:01 Pulse Rate 81 09/28/22 22:35 Respiratory Rate 20 H 09/28/22 22:35 Blood Pressure 162/89 09/28/22 22:35 Pulse Oximetry 97 09/28/22 22:35 Oxygen Delivery Me thod 09/28/22 21:01 MDM - Extremity (Nontraumatic) Medical Decision Making Patient is in for laceration of the left forearm. He was given 1 dose of Ancef in route by EMS. Bleeding was controlled on arrival. Discussed with patient options for wound closure. We discussed potential benefits and risk of various types of wound closure. We discussed realistic expectations and likelihood for scarring. We discussed risk of infection. Patient voiced understanding of instruction and gives verbal consent to proceed with suture repair of the wound. Local anesthetic was administered and wound was irrigated extensively with 1000 cc of sterile water. No obvious foreign bodies appreciated. Wound edges were revised. 2 simple interrupted sutures utilized at the V area of the wound and then running locking sutures on either side of the V. Just proximal to the main wound there was a small half-inch superficial linear laceration that was repaired with 1 suture simple interrupted technique. Patient tolerated suture repair well with no immediate complications. Wound was dressed and patient is advised of aftercare. Tetanus vaccination was updated. Patient is started on Keflex antibiotic for prophylaxis. Advised him to follow-up with primary care provider as needed. Return in 10 days for suture removal. Return to the ER sooner as needed for any new or worsening symptoms. Chart reviewed and patient discussed with midlevel. Agree with assessment and plan. Discharge Plan Discharge Patient Disposition: Home Clinical Impression: Laceration Condition: Stable Prescriptions: New cephalexin 500 mg capsule 500 mg PO BID 6 Days Qty: 12 0RF No Action hydrocodone-acetaminophen 10-325 mg Tablet 1 tab PO Q6H PRN (Reason: Pain) citalopram 10 mg Tablet 10 mg PO DAILY Flonase Allergy Relief 50 mcg/actuation [place],Suspension 2 spray INTRANASAL DAILY fluticasone propion-salmeterol 250-50 mcg/dose Blister With Device 1 inh INHALATION BID methocarbamol 500 mg Tablet 500 mg PO BID PRN (Reason: Spasms) carvedilol 6.25 mg Tablet 6.25 mg PO DAILY atorvastatin 40 mg Tablet 40 mg PO BEDTIME Qty: 30 0RF Nitrostat 0.4 mg Tablet, Sublingual 0.4 mg sublingual Q5M PRN (Reason: Chest Pain) Qty: 25 0RF omeprazole 40 mg Capsule,Delayed Release(Dr/Ec) 40 mg PO BIDWM Qty: 60 0RF Discharge Orders: Discharge ED (Routine); Ordered 09/28/22 Ordered By: Zuri Zaman Referrals: Tien Conde [Primary Care Provider] - Discharge Diet: Usual diet Discharge Activity: Limit activity as instructed Patient Instructions: Care For Your Stitches (ED) Activity Restrictions/Additional Instructions: Keep the wound clean and dry. Start Keflex antibiotic tomorrow twice a day for 7 days. You were sent home with 2 tablets of Keflex from ER [facility] as the weather may prevent you from getting to the pharmacy tomorrow. Take 1 in the morning and 1 tomorrow evening and then once you get your prescription and continue twice a day dosing for the remaining 6 days. Monitor closely for signs and symptoms of infection. Follow-up in approximately 10 days for suture removal. Return to the ER as needed for any new or worsening symptoms Coding Level of Care Code ED Cigar Head Piercer for Tereza Miner Exam Expanded Problem Focused
[2022-09-28] MEDS: tetanus-dipt-pertussis 0.5 mL SDV IM (22:32)
--- NOTE | 2022-09-28 22:34 | PC.NURSE ---
Arm bandaged with simple dressing of nonadherent and kerlix.
[2022-09-28 22:35] VITALS: BP 162/89; PULSE 81; RESP 20; O2SAT 97
== END 2022-09-28 22:36 | disposition home or self-care (01) ==
PROVIDERS: Emergency Provider Nurse Practitioner Family; PCP Family Medicine
DX: S51.812A Laceration without foreign body of left forearm, initial encounter (principal); E78.5 Hyperlipidemia, unspecified; I10 Essential (primary) hypertension; Z87.891 Personal history of nicotine dependence; W01.118A Fall on same level from slipping, tripping and stumbling with subsequent striking against other sharp object, initial encounter; Z23 Encounter for immunization
CPT/HCPCS: 12006; 90471; 90715; 99284

== ENCOUNTER 2023-05-15 07:51 | Emergency (ER) | payer MEDICAID, SELFPAY ==
--- NOTE | 2023-05-15 07:52 | ECG_ITS ---
[facility] Test Date: 2023-05-15 Pat Name: Alcides Pretty Department: Room: Gender: Male Signal Intelligence Analyst: : 1965 Requested By: Oscar Chong Order Number: [id number] Nadia MD: Michael Riggs M.D. Measurements Intervals [place] Rate: 72 P: 5 RI: 156 QRS: 29 QRSD: 89 T: 51 QT: 373 QTc: 410 Interpretive Statements SINUS RHYTHM NONSPECIFIC T-WAVE ABNORMALITY Compared to ECG 10/08/2019 20:59:21 T-wave abnormality now present Sinus tachycardia no longer present Left ventricular hypertrophy no longer present ST (T wave) deviation no longer present Myocardial infarct finding no longer present Electronically Signed On 05-15-2023 10:55:01 CDT by Michael Riggs M.D. [id number]
--- NOTE | 2023-05-15 07:52 | XRR_ITS ---
PROCEDURE INFORMATION: Exam: XR Chest Exam date and time: 05/15/2023 8:10 AM Age: 57 years old Clinical indication: Pain; Chest pressure; Prior surgery; Surgery date: 6+ months; Surgery type: Valve; Additional info: Cp TECHNIQUE: Imaging protocol: Radiologic exam of the chest. Views: 1 view. COMPARISON: CR XR chest 1V portable [id number] 10/08/2019 6:04 PM FINDINGS: Lungs: No pulmonary consolidation. Pleural spaces: No pleural effusion. No pneumothorax. Heart/Mediastinum: The cardiac silhouette is unchanged. No gross evidence of pneumomediastinum. Bones/joints: No gross fracture. XR/XR chest 1V portable [id number] IMPRESSION: No acute cardiopulmonary abnormality identified.
[2023-05-15 07:54] VITALS: BP 157/91; PULSE 77; RESP 18; TEMP 37; O2SAT 96
--- NOTE | 2023-05-15 08:03 | ED_ITS ---
HPI - Chest Pain General: Chief Complaint: Chest Pain Stated Complaint: cp Time Seen by Provider: 05/15/23 07:53 Source: patient Mode of arrival: ambulatory Limitations: no limitations History of Present Illness: 57-year-old male states that he has been having dyspnea along with lightheadedness since last night. States he feels like he just has a hard time getting his breath he had some mild chest pains as well. He denies any worsening proving factors he denies any vomiting or diarrhea his vital signs here are all normal. Associated symptoms: Reports dyspnea; Deny abdominal pain, fever(s), nausea or vomiting Review of Systems Const: Denies: fever(s) or chills Eyes: Denies: blurry vision or eye discomfort ENMT: Denies: throat pain or dental pain Card: Reports: chest pain and pre-syncope Resp: Reports: dyspnea GI: Denies: abdominal pain, nausea, vomiting or diarrhea : Denies: dysuria Musc: Denies: neck pain or back pain Skin/Breast: Denies: rash Neuro: Denies: headache(s) PFS ED PFSH: Medical History (Updated 05/15/23 @ 10:38 by Oscar Chong MD) Back pain GI bleeding Gout Heart murmur Hyperlipidemia Hypertension Peptic ulcer disease Pneumonia Family History Daughter No problems noted. Brother CAD (coronary artery disease) Sister CAD (coronary artery disease) Social History Smoking and tobacco status: former smoker Alcohol intake: never Substance/Drug Use: never Physical Exam Const: COMMON NORMALS: no acute distress, patient oriented x3 and healthy appearing HENMT: COMMON NORMALS: normocephalic and atraumatic HEAD & SCALP: normocephalic and atraumatic Eye: COMMON NORMALS: conjunctivae normal CONJUNCTIVA: Yes conjunctivae normal Neck/C-Spine: COMMON NORMALS: full ROM and supple Chest: COMMONS NORMALS: normal inspection of the chest and normal palpation of entire chest wall Resp: COMMON NORMALS: normal respiratory effort, No retractions, No use of accessory muscles and clear to auscultation bilaterally AUSCULTATION: clear to auscultation bilaterally Cardio: COMMON NORMALS: regular rate, regular rhythm and No murmurs present (Cardio) RATE: regular rate RHYTHM: regular rhythm GI: COMMON NORMALS: Normal to inspection, nondistended, normoactive bowel sounds present, Soft to palpation, non-tender and no masses PALPATION: Yes Soft to palpation Extremity: COMMON NORMALS: normal to inspection and full ROM Neuro: COMMON NORMALS: patient oriented x3, moves all extremities and no focal motor deficits Psych: COMMON NORMALS: mental status grossly normal, Normal thought process present and cooperative THOUGHT PROCESS: Normal thought process present Skin: COMMON NORMALS: no rashes or lesions noted and no wounds GENERAL SKIN EXAM: no rashes or lesions noted Course Vital Signs: Vital signs: Vital Signs Temperature 98.6 F 05/15/23 07:54 Pulse Rate 77 05/15/23 07:54 Respiratory Rate 18 05/15/23 07:54 Blood Pressure 157/91 05/15/23 07:54 Pulse Oximetry 96 05/15/23 07:54 Oxygen Delivery Me thod Room Air 05/15/23 07:54 MDM - Chest Pain Medical Decision Making Patient presents for chest pains atypical in nature his troponins here are negative D-dimer is negative as well he has been in no distress here he is stable for discharge he is to follow-up with PCP and return if worsening he understands agrees to plan. Medical Records I reviewed the patient's medical records. Lab Data I reviewed the patient's lab results. 05/15/23 08:08 05/15/23 08:08 Radiology Impressions Chest X-Ray 05/15/23 07:52 IMPRESSION: No acute cardiopulmonary abnormality identified. Laboratory Results WBC 12.14 10^3/uL (3.29-11.43) H 05/15/23 08:08 RBC 4.75 10^6/uL (3.85-5.65) 05/15/23 08:08 Hgb 15.00 g/dL (11.27-16.99) 05/15/23 08:08 Hct 45.8 % (37-53) 05/15/23 08:08 MCV 96.4 fl (82-101) 05/15/23 08:08 MCH 31.6 pg (27-33) 05/15/23 08:08 MCHC 32.8 g/dL (30-55) 05/15/23 08:08 RDW 13.3 % (12.1-15.1) 05/15/23 08:08 Plt Count 239 10^3/cmm (157-399) 05/15/23 08:08 MPV 10.3 fL (7.4-10.4) 05/15/23 08:08 Neut % (Auto) 71.7 % 05/15/23 08:08 Lymph % (Auto) 22.6 % 05/15/23 08:08 [place] % (Auto) 4.4 % 05/15/23 08:08 Eos % (Auto) 0.7 % 05/15/23 08:08 Baso % (Auto) 0.4 % 05/15/23 08:08 Neut # (Auto) 8.70 10^3/uL (1.8-7.7) H 05/15/23 08:08 Lymph # (Auto) 2.7 10^3/uL (0.8-4.8) 05/15/23 08:08 [place] # (Auto) 0.5 10^3/uL (0.2-0.9) 05/15/23 08:08 Eos # (Auto) 0.1 10^3/uL (0.0-0.8) 05/15/23 08:08 Baso # (Auto) 0.1 10^3/uL (0.0-0.1) 05/15/23 08:08 Nucleated RBC % (auto) 0 % 05/15/23 08:08 Nucleated RBCs # 0.0 /100WBC 05/15/23 08:08 PT 12.80 SECONDS (12.1-14.9) 05/15/23 08:08 INR 0.94 (0.8-1.2) 05/15/23 08:08 D-Dimer 0.37 ug/mLFEU (0-0.59) 05/15/23 08:08 Sodium 140 mmol/L (136-145) 05/15/23 08:08 Potassium 4.2 mmol/L (3.5-5.1) 05/15/23 08:08 Chloride 101 mmol/L (98-107) 05/15/23 08:08 Carbon Dioxide 27 mmol/L (22-29) 05/15/23 08:08 Anion Gap 16.2 (5-19) 05/15/23 08:08 BUN 13 mg/dL (6-20) 05/15/23 08:08 Creatinine 0.9 mg/dL (0.7-1.2) 05/15/23 08:08 GFR Calculation 86.7 mL/min (90-130) L 05/15/23 08:08 Glucose 122 mg/dL (65-115) H 05/15/23 08:08 Calculated Osmolality 291 mOsm/kg (285-295) 05/15/23 08:08 Calcium 9.1 mg/dL (8.5-10.5) 05/15/23 08:08 Total Bilirubin 0.5 mg/dL (0.15-1.2) 05/15/23 08:08 AST 14 U/L (0-40) 05/15/23 08:08 ALT 20 U/L (0-41) 05/15/23 08:08 Alkaline Phosphatase 105 U/L (40-130) 05/15/23 08:08 Troponin T Baseline 11 ng/L (0-15) 05/15/23 08:08 Troponin T 120 Minute 9.65 ng/L (0-15) 05/15/23 10:01 Delta Troponin T -1.35 ABS# (0-10) L 05/15/23 10:01 NT-Pro-B Natriuret Pep 381 pg/mL (0-125) H 05/15/23 08:08 Total Protein 7.2 g/dL (6.6-8.7) 05/15/23 08:08 Albumin 4.3 g/dL (3.5-5.2) 05/15/23 08:08 Globulin 2.9 g/dL (1.3-4.6) 05/15/23 08:08 Lipase 24 U/L (13-60) 05/15/23 08:08 EKG Data EKG 1: I personally reviewed and interpreted this EKG as follows: EKG interpretation date: 05/15/23 EKG interpretation time: 07:54 Interpretation: nsr hr [address] or wave abnormalities qrs 89 qtc 397 Discharge Plan Discharge Patient Disposition: Home Clinical Impression: Atypical chest pain, Dyspnea Condition: Stable Prescriptions: No Action hydrocodone-acetaminophen 10-325 mg Tablet 1 tab PO Q6H PRN (Reason: Pain) citalopram 10 mg Tablet 10 mg PO DAILY fluticasone propionate [Flonase Allergy Relief] 50 mcg/actuation [place],Suspension 2 spray INTRANASAL DAILY fluticasone propion-salmeterol 250-50 mcg/dose Blister With Device 1 inh INHALATION BID methocarbamol 500 mg Tablet 500 mg PO BID PRN (Reason: Spasms) carvedilol 6.25 mg Tablet 6.25 mg PO DAILY atorvastatin 40 mg Tablet 40 mg PO BEDTIME Qty: 30 0RF nitroglycerin [Nitrostat] 0.4 mg Tablet, Sublingual 0.4 mg sublingual Q5M PRN (Reason: Chest Pain) Qty: 25 0RF furosemide 40 mg tablet 40 mg PO QAM metformin 500 mg tablet 500 mg PO BID famotidine 40 mg tablet 40 mg PO BID allopurinol 100 mg tablet 100 mg PO DAILY spironolactone 25 mg tablet 25 mg PO DAILY potassium chloride 20 mEq tablet,ER particles/crystals 20 meq PO QAM dorzolamide-timolol 22.3-6.8 mg/mL drops 1 drp ophthalmic (eye) BID Ventolin HFA 90 mcg/actuation HFA aerosol inhaler 2 inh INHALATION Q4H PRN (Reason: Shortness Of Breath) Aspir-81 81 mg Tablet,Delayed Release (Dr/Ec) 81 mg PO DAILY Discharge Orders: Discharge ED (Routine); Ordered 05/15/23 Ordered By: Oscar Chong Referrals: Tien Conde [Primary Care Provider] - 1-3 days Discharge Diet: Advance as tolerated Discharge Activity: Resume usual activity Patient Instructions: Chest Pain (ED), Dyspnea (ED) Coding Level of Care Code ED Automotive Parts Interpreter for Tereza Miner
[2023-05-15] MEDS: sodium chloride 0.9% 1,000 ML 999 ML IV (08:10)
[2023-05-15 09:00] LABS: Basophils # 0.1 10^3/uL (0.0-0.1); Basophils % 0.4 %; Eosinophils # 0.1 10^3/uL (0.0-0.8); Eosinophils % 0.7 %; Hematocrit 45.8 % (37-53); Lymphocytes # 2.7 10^3/uL (0.8-4.8); Lymphocytes % 22.6 %; Mean Corpuscular HGB Conc 32.8 g/dL (30-55); Mean Corpuscular Hemoglobin 31.6 pg (27-33); Mean Corpuscular Volume 96.4 fl (82-101); Mean Platelet Volume 10.3 fL (7.4-10.4); Monocytes # 0.5 10^3/uL (0.2-0.9); Monocytes % 4.4 %; Neutrophils % 71.7 %; Nucleated Red Blood Cells % 0 %; Platelet Count 239 10^3/cmm (157-399); Red Blood Count 4.75 10^6/uL (3.85-5.65); Red Cell Distribution Width 13.3 % (12.1-15.1); White Blood Count 12.14 10^3/uL (3.29-11.43)
[2023-05-15 09:03] LABS: INR 0.94 (0.8-1.2)
[2023-05-15 09:06] LABS: D Dimer 0.37 ug/mLFEU (0-0.59)
[2023-05-15 09:14] LABS: Troponin(5th) Baseline 11 ng/L (0-15)
[2023-05-15 09:21] LABS: Alanine Aminotransferase 20 U/L (0-41); Albumin Level 4.3 g/dL (3.5-5.2); Alkaline Phosphatase 105 U/L (40-130); Anion Gap 16.2 (5-19); Aspartate Amino Transferase 14 U/L (0-40); Blood Urea Nitrogen 13 mg/dL (6-20); Calcium 9.1 mg/dL (8.5-10.5); Carbon Dioxide 27 mmol/L (22-29); Chloride 101 mmol/L (98-107); Globulin 2.9 g/dL (1.3-4.6); Glomerular Filtration Rate 86.7 mL/min (90-130); Glucose 122 mg/dL (65-115); Lipase 24 U/L (13-60); NT Pro B Type Natriuretic Pept 381 pg/mL (0-125); Osmolality Calculated 291 mOsm/kg (285-295); Potassium 4.2 mmol/L (3.5-5.1); Sodium 140 mmol/L (136-145); Total Bilirubin 0.5 mg/dL (0.15-1.2); Total Protein 7.2 g/dL (6.6-8.7)
--- NOTE | 2023-05-15 09:52 | ECG_ITS ---
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 Measurements Intervals [place] Rate: 72 P: 5 MN: 156 QRS: 29 QRSD: 89 T: 51 QT: 373 QTc: 410 Interpretive Statements SINUS RHYTHM NONSPECIFIC T-WAVE ABNORMALITY Compared to ECG 10/08/2019 20:59:21 T-wave abnormality now present Sinus tachycardia no longer present Left ventricular hypertrophy no longer present ST (T wave) deviation no longer present Myocardial infarct finding no longer present Electronically Signed On 05-15-2023 10:56:45 CDT by Michael Riggs M.D. [id number]
[2023-05-15] MEDS: FUROsemide 10 mg/mL SDV 10mL 60 MG IVP (10:45)
[2023-05-15 10:46] LABS: Troponin 5 2HR 9.65 ng/L (0-15); Troponin 5 2HR Delta -1.35 ABS# (0-10)
== END 2023-05-15 10:54 | disposition home or self-care (01) ==
PROVIDERS: Emergency Provider Emergency Medicine; PCP Family Medicine
DX: R07.89 Other chest pain (principal); R06.00 Dyspnea, unspecified
CPT/HCPCS: 36415; 71045; 80053; 83690; 83880; 84484; 85025; 85378; 85610; 93005; 96361; 96374; 99285; J1940; J7030

== ENCOUNTER → 2023-07-05 11:08 | Outpatient (BNVA) | payer MEDICAID, SELFPAY | PROVIDERS: PCP Family Medicine; Visit Provider Emergency Medicine | DX: R68.89 Other general symptoms and signs (principal) | CPT/HCPCS: 87400; 87426 ==

== ENCOUNTER 2023-08-20 18:16 | Emergency (ER) | payer MEDICAID, SELFPAY ==
[2023-08-20 18:19] VITALS: BP 139/89; PULSE 79; RESP 16; TEMP 36.6; O2SAT 96; BMI 43.5
--- NOTE | 2023-08-20 18:42 | ED_ITS ---
HPI - Back Pain/Injury General: Chief Complaint: Back Pain/Injury Stated Complaint: back pain Time Seen by Provider: 08/20/23 18:41 History of Present Illness: 57-year-old male patient comes in today for complaints of low back pain with some radiation of pain down the right leg. On exam patient appears nontoxic. Patient was able to ambulate with antalgic gait. Patient has a history of chronic back pain. Patient does use hydrocodone as needed for pain. Patient appears in moderate pain. Review of Systems General: Reports: 10 or more systems reviewed and unremarkable except in HPI and below Musc: Reports: back pain [facility] ED PFS: Medical History (Updated 08/20/23 @ 18:48 by MAGO Pelayo) Gout Hyperlipidemia Back pain Peptic ulcer disease GI bleeding Hypertension Pneumonia Heart murmur Family History Daughter No problems noted. Brother CAD (coronary artery disease) Sister CAD (coronary artery disease) Social History Smoking and tobacco/nicotine status: former use of tobacco/nicotine Alcohol intake: never Substance/Drug Use: never Physical Exam Const: COMMON NORMALS: alert HENMT: COMMON NORMALS: normocephalic HEAD & SCALP: normocephalic Neck/C-Spine: COMMON NORMALS: full ROM Resp: COMMON NORMALS: normal respiratory effort Back/Pelvis: LUMBAR SPINE/LOWER BACK: Yes paraspinal muscle tenderness Neuro: SENSORIUM/ORIENTATION: Yes alert Skin: COMMON NORMALS: turgor normal GENERAL SKIN EXAM: turgor normal Course Vital Signs: Vital signs: Vital Signs Temperature 97.8 F 08/20/23 18:19 Pulse Rate 79 08/20/23 18:19 Respiratory Rate 16 08/20/23 18:19 Blood Pressure 139/89 08/20/23 18:19 Pulse Oximetry 96 08/20/23 18:19 Oxygen Delivery Me thod Room Air 08/20/23 18:19 MDM - Back Pain/Injury Medical Decision Making Patient comes in today with exacerbation of chronic back pain after bending over to pick something up out of the yard. On exam patient has tenderness of his right paraspinous muscles with spasms noted. Midline spinal tenderness is unremarkable. Vital signs are normal. Differential diagnosis includes but not limited to intervertebral disc disease, facet arthropathy, lumbar strain. Reviewed exam with patient with recommendations for treatment with celecoxib 200 mg twice a day for the next 10 days, methocarbamol 750 every 6 hours as needed for muscle spasms, 10 mg of dexamethasone for inflammation. Patient reported understanding of care plan and need for follow-up or return to the ER or new concerns. No radiology studies performed this visit Discharge Plan Discharge Patient Disposition: Home Clinical Impression: Strain of lumbar region Qualifiers: Encounter type: initial encounter Qualified Code(s): S39.012A - Strain of muscle, fascia and tendon of lower back, initial encounter Condition: Stable Prescriptions: New celecoxib 200 mg capsule 200 mg PO BID Qty: 20 0RF methocarbamol 750 mg tablet 750 mg PO Q6H PRN (Reason: muscle spasm) Qty: 20 0RF No Action [id number] [Bromfed DM] 2-30-10 mg/5 mL syrup 5 ml PO Q6H PRN (Reason: cold symptoms) Qty: 118 0RF Paxlovid 300 mg (150 mg x 2)-100 mg tablets,dose pack See Rx Instructions PO PER PKG DIR Qty: 1 0RF Rx Instructions: PO PER PKG DIR cephalexin 500 mg capsule 500 mg PO BID Qty: 20 0RF hydrocodone-acetaminophen 10-325 mg Tablet 1 tab PO Q6H PRN (Reason: Pain) citalopram 10 mg Tablet 10 mg PO DAILY fluticasone propionate [Flonase Allergy Relief] 50 mcg/actuation [place],Suspension 2 spray INTRANASAL DAILY fluticasone propion-salmeterol 250-50 mcg/dose Blister With Device 1 inh INHALATION BID methocarbamol 500 mg Tablet 500 mg PO BID PRN (Reason: Spasms) carvedilol 6.25 mg Tablet 6.25 mg PO DAILY atorvastatin 40 mg Tablet 40 mg PO BEDTIME Qty: 30 0RF nitroglycerin [Nitrostat] 0.4 mg Tablet, Sublingual 0.4 mg sublingual Q5M PRN (Reason: Chest Pain) Qty: 25 0RF furosemide 40 mg tablet 40 mg PO QAM metformin 500 mg tablet 500 mg PO BID famotidine 40 mg tablet 40 mg PO BID allopurinol 100 mg tablet 100 mg PO DAILY spironolactone 25 mg tablet 25 mg PO DAILY potassium chloride 20 mEq tablet,ER particles/crystals 20 meq PO QAM dorzolamide-timolol 22.3-6.8 mg/mL drops 1 drp ophthalmic (eye) BID Ventolin HFA 90 mcg/actuation HFA aerosol inhaler 2 inh INHALATION Q4H PRN (Reason: Shortness Of Breath) Aspir-81 81 mg Tablet,Delayed Release (Dr/Ec) 81 mg PO DAILY Discharge Orders: Discharge ED (Routine); Ordered 08/20/23 Ordered By: Rudy Anderson Referrals: Tien Conde [Primary Care Provider] - Discharge Diet: Usual diet Discharge Activity: Increase activity as tolerated Patient Instructions: Low Back Strain (ED), Lower Back Exercises (ED) Activity Restrictions/Additional Instructions: Activity as tolerated. Gentle stretching and range of motion exercises. Use ice and heat to help with pain. Take celecoxib 200 mg 2 times a day for pain and inflammation. Use methocarbamol as needed for muscle spasms. Continue with hydrocodone as prescribed for further pain relief. With back pain is very important to try to stay as active as possible. And activity will lead to prolonged symptoms and worsening pain. Follow-up with primary care for further instructions. Return to ED for new concerns. Coding Level of Care Code ED Animal Technician for Tereza Miner
[2023-08-20] MEDS: dexamethasone 10 mg/mL INJ IM (18:50)
[2023-08-20] MEDS: ketorolac 30 mg/mL INJ IM (18:53)
[2023-08-20 19:20] VITALS: BP 132/86; PULSE 76; RESP 18; O2SAT 95
== END 2023-08-20 19:29 | disposition home or self-care (01) ==
PROVIDERS: Emergency Provider Nurse Practitioner Family; PCP Family Medicine
DX: S39.012A Strain of muscle, fascia and tendon of lower back, initial encounter (principal); Z79.82 Long term (current) use of aspirin; Z79.84 Long term (current) use of oral hypoglycemic drugs; Z87.891 Personal history of nicotine dependence; E78.5 Hyperlipidemia, unspecified; I10 Essential (primary) hypertension; X58.XXXA Exposure to other specified factors, initial encounter
CPT/HCPCS: 96372; 99284; J1100; J1885

== ENCOUNTER 2024-06-20 20:00 | Outpatient (CLI) | payer MEDICAID, SELFPAY | END 2024-06-20 20:01 | disposition home or self-care (01) | LOC: SLEEP 23:06 | PROVIDERS: PCP Family Medicine; Visit Provider Anesthesiology Pain Medicine | DX: G47.33 Obstructive sleep apnea (adult) (pediatric) (principal); Z99.89 Dependence on other enabling machines and devices | CPT/HCPCS: 95810 ==

== ENCOUNTER 2024-11-26 20:00 | Outpatient (CLI) | payer MEDICAID, SELFPAY | END 2024-11-26 20:01 | disposition home or self-care (01) | LOC: SLEEP 23:51 | PROVIDERS: PCP Family Medicine; Visit Provider Anesthesiology Pain Medicine | DX: G47.33 Obstructive sleep apnea (adult) (pediatric) (principal) | CPT/HCPCS: 95811 ==